=== PATIENT | male | born 1965 | race Caucasian/White ===

== ENCOUNTER 2017-05-13 09:26 | Outpatient (RCR) | payer BC ==
[2017-03-06 09:21] VITALS: BP 153/81
[2017-03-06 09:54] LABS: PLATELET COUNT, AUTOMATED 133 K/uL (150-450)
[2017-03-13 09:08] VITALS: BP 125/82
--- NOTE | 2017-03-13 09:55 | ONC Progress Note - NP.Halsey ---
Patient History Date of Service Mar 13, 2017 Reason For Visit/HPI Patient is seen in the clinic today for follow-up of his stage IV low-grade follicular lymphoma which is currently in remission. 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 Labs were drawn prior office visit and reviewed today. Overall he is feeling well and denies any signs or symptoms of sinus infection or upper respiratory infection. Patient has been healthy and has not been on antibiotics for over a year. He completed IgG infusions last April. He has been followed every 3 months for monitoring. Patient is taking Zyrtec daily and probiotics. He is careful to wash his hands and avoid areas of crowded people. 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 As long as he avoids tuna he has no episodes of gout attacks Problem List (1) NHL (non-Hodgkin's lymphoma) (2) Hypogammaglobulinemia, acquired (3) Stage 4 low grade lymphoma Oncology History Nguyễn returns. He finished all of his maintenance Rituxan but continues to have leukopenia and hypogammaglobulinemia. He started IVIG in December 2015 and continued it through May 2016. His levels improved from the 200s up to the 700s. His highest level was above 1000. With this, his issues with infection improved considerably. We had issues with insurance approval and thus we put it on hold. His IgG is dropping again to 391 and more recent is 345. His lymphopenia is mild, we continue to use acyclovir as prophylaxis. 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 Alcohol History He denies use Smoking History: No Smoking Status: Never Smoker Medications and Allergies Active Scripts Acyclovir (ACYCLOVIR) 400 Mg Tablet, 400 MG PO BID, #60 TAB 5 Refills Prov:TAMIKA LARSEN INVESTOR RELATIONS ASSOCIATE-BC, ONC 01/31/17 Reported Medications Cetirizine Hcl (ZYRTEC) 10 Mg Capsule, 10 MG PO QDAY, CAPSULE 03/13/17 Lactobacillus Combo No.11 (PROBIOTIC) 1 Each Cap.sprink 03/13/17 Multivitamin (MULTIVITAMINS) 1 Each Capsule, 1 EACH PO, CAPSULE 03/13/17 Indomethacin (INDOMETHACIN) 50 Mg Capsule, 50 MG PO, CAPSULE 12/17/13 Allergies: Coded Allergies: No Known Drug Allergies (Unverified , 12/17/13) Review of System/Physical Exam Review of Systems All Systems Reviewed/Normal: Yes, Except as Noted Respiratory: Positive for Cough (occasional dry cough patient does report that he the use a wood burning stove) Physical Exam Vital Signs Temperature: 96.0 Pulse: 80 BP Systolic: 125 BP Diastolic: 82 Respiratory Rate: 16 O2 SAT: 94 O2 Delivery: Room Air Height (inches) 0.00 Weight lb: 220 Weight oz: 9.0 Weight Kg (Giovanni): 99.487754 Pain: 0 ECOG Score: 0 (Patient has been active outdoors skiing) General: Stable, Well Developed, Well Nourished, Not In Acute Distress HEENT: No Trauma, No Conjunctivitis Neck: Supple, No Thyromegaly Lungs: Clear to Auscultation Heart: Regular Rate, Regular Rhythm, No Gallops Abdomen: Soft and Nontender, No Hepatosplenomegaly, No Masses Extremities: No Cyanosis, No Clubbing, No Edema Lymphadenopathy: No Cervical, No Subclavicular, No Axillary, No Peripheral Psychiatric: Mood appears normal, Affect appears normal Skin: No Skin Rashes, No Bruising, No Purpura Diagnostic Studies Diagnostic Studies Laboratory Laboratory Tests 03/06/17 09:15 Laboratory Tests 03/06/17 09:15: White Blood Count 5.1, Red Blood Count 5.62, Hemoglobin 16.3, Hematocrit 46.2, Mean Corpuscular Volume 82.3, Mean Corpuscular Hemoglobin 29.0, Mean Corpuscular Hemoglobin Concent 35.3, Red Cell Distribution Width 14.2, Platelet Count 133, Mean Platelet Volume 8.4, Neutrophils (%) (Auto) 74.8, Lymphocytes (% ) (Auto) 12.9, Monocytes (%) (Auto) 8.7, Eosinophils (%) (Auto) 0.8, Basophils ( %) (Auto) 2.8, Nucleated RBC Relative Count (auto) 0.1, Neutrophils # (Auto) 3.8 , Lymphocytes # (Auto) 0.7, Monocytes # (Auto) 0.4, Eosinophils # (Auto) 0.0, Basophils # (Auto) 0.1, Nucleated RBC Absolute Count (auto) 0.00, Sodium Level 142, Potassium Level 4.0, Chloride Level 107, Carbon Dioxide Level 23, Blood Urea Nitrogen 15, Creatinine 1.10, Glomerular Filtration Rate Calc > 60.0, Random Glucose 109, Calcium Level 9.0, Total Bilirubin 0.6, Aspartate Amino Transf (AST/SGOT) 28, Alanine Aminotransferase (ALT/SGPT) 49, Alkaline Phosphatase 62, Total Protein 6.6, Albumin 4.3, Immunoglobulin G 345, Immunoglobulin A 39, Immunoglobulin M <5 Assessment and Plan Assessment & Plan Mr. Boyd is a pleasant 52-year-old gentleman with the followin. Stage IV follicular lymphoma, low-grade, in remission. 2. Acquired hypogammaglobulinemia. His baseline IgG after chemotherapy was less than 300. It is dropping again, currently at 345. If he has issues with recurrent infections, we will appeal to his insurance company to get IVIG's restarted again. He will continue on acyclovir for prevention. 3. 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 Plan: 1. Patient will follow in 3 months with CBC, CMP and IgG levels. 2. Patient will establish care at the medical office building, Dr. Cardozo is retiring so he will transfer his care. Several names were given to him today. I personally spent a total of 20 minutes. Of that 15 minutes was counseling/ coordination of patient's care. See my note above for details. TAMIKA LARSEN INVESTOR RELATIONS ASSOCIATE-BC, ONC Mar 13, 2017 09:55
[2017-04-22 08:58] VITALS: BP 151/89
--- NOTE | 2017-04-22 09:20 | ONC Progress Note - NP.Halsey ---
Patient History Reason For Visit/HPI Patient is seen in the clinic today for upper respiratory infection symptoms to include cough, shortness of breath with exertion, sinus drainage which is green in color, no fever or chills, no bone aches. Patient reports that symptoms started approximately 14 days ago. He has been using [id number] medications such as Mucinex and Tylenol cold and cough. He felt that symptoms would improve, unfortunately over the weekend they seem to get worse. Currently his ribs hurt from coughing. He feels that he is waking in the middle of the night coughing. His had flulike symptoms to include diarrhea and nausea several weeks ago, he has not been around anyone else that has been ill to his knowledge. Patient is seen in the clinic for his stage IV low-grade follicular lymphoma which is currently in remission. 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 He previously had frequent upper respiratory infections however has been relatively well for over a year Problem List (1) Infection of the larynx, trachea, bronchi or lungs Oncology History Nguyễn returns. He finished all of his maintenance Rituxan but continues to have leukopenia and hypogammaglobulinemia. He started IVIG in December 2015 and continued it through May 2016. His levels improved from the 200s up to the 700s. His highest level was above 1000. With this, his issues with infection improved considerably. We had issues with insurance approval and thus we put it on hold. His IgG is dropping again to 391 and more recent is 345. His lymphopenia is mild, we continue to use acyclovir as prophylaxis. 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 Alcohol History He denies use Smoking History: No Smoking Status: Never Smoker Medications and Allergies Active Scripts Benzonatate (BENZONATATE) 200 Mg Capsule, 200 MG PO TID, #15 CAP Prov:TAMIKA LARSEN-ESTUARDO, ONC 04/22/17 Azithromycin (Z-PACK) 250 Mg Tablet, 250 MG PO QDAY for URI, #6 DOSE-PACK Prov:TAMIKA LARSEN, ONC 04/22/17 Acyclovir (ACYCLOVIR) 400 Mg Tablet, 400 MG PO BID, #60 TAB 5 Refills Prov:TAMIKA LARSENBC, ONC 01/31/17 Reported Medications Cetirizine Hcl (ZYRTEC) 10 Mg Capsule, 10 MG PO QDAY, CAPSULE 03/13/17 Lactobacillus Combo No.11 (PROBIOTIC) 1 Each Cap.sprink 03/13/17 Multivitamin (MULTIVITAMINS) 1 Each Capsule, 1 EACH PO, CAPSULE 03/13/17 Indomethacin (INDOMETHACIN) 50 Mg Capsule, 50 MG PO, CAPSULE 12/17/13 Allergies: Coded Allergies: No Known Drug Allergies (Unverified , 12/17/13) Review of System/Physical Exam Review of Systems All Systems Reviewed/Normal: Yes, Except as Noted Constitutional: Positive for Recent Infection Respiratory: Positive for Cough, Positive for Expectoration, Positive for Shortness of Breath, Positive for Wheezing HEENT: Nasal Discharge, Sore Throat Hematologic: Positive for Fatigue Physical Exam Vital Signs Temperature: 97.2 Pulse: 71 BP Systolic: 151 BP Diastolic: 89 Respiratory Rate: 16 O2 SAT: 93 O2 Delivery: Room Air Height (inches) 0.00 Weight lb: 220 Weight oz: 9.0 Weight Kg (Giovanni): 99.491664 Pain: 0 ECOG Score: 1 General: Stable, Well Developed, Well Nourished, Not In Acute Distress, Other ( patient appears to not be feeling well, he is coughing frequently which sounds loose) HEENT: No Trauma, No Conjunctivitis, No Icterus, No Mucositis, No Oral Thrush Neck: Supple Lungs: Not Clear to Auscultation (bilateral lower lobes are distant and a cough is experienced with each deep breath. Upper lobes are clear bilaterally) Heart: Regular Rate, Regular Rhythm, No Gallops Abdomen: Soft and Nontender, Other Psychiatric: Mood appears normal, Affect appears normal Skin: No Skin Rashes, No Bruising, No Purpura Assessment and Plan Assessment & Plan Patient is seen in the clinic today for upper respiratory infection. Patient has not been treated with antibiotics in over a year. I will start him on a Z- Chaitanya, and Tessalon Perles. If symptoms do not improve patient will return to the clinic. Patient verbalized understanding. He will see be seen in follow-up as previously scheduled. Patient previously used Dr. Cardozo at his primary care provider and is without a provider at this time. This information is copied from previous note. Mr. Boyd is a pleasant 52-year-old gentleman with the followin. Stage IV follicular lymphoma, low-grade, in remission. 2. Acquired hypogammaglobulinemia. His baseline IgG after chemotherapy was less than 300. It is dropping again, currently at 345. If he has issues with recurrent infections, we will appeal to his insurance company to get IVIG's restarted again. He will continue on acyclovir for prevention. 3. 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 Plan: 1. Patient will follow in 3 months with CBC, CMP and IgG levels. 2. Patient will establish care at the medical office building, Dr. Cardozo is retiring so he will transfer his care. Several names were given to him today. I personally spent a total of 20 minutes. Of that 15 minutes was counseling/ coordination of patient's care. See my note above for details. TAMIKA LARSEN AIR GUN OPERATOR-BC, ONC Apr 22, 2017 09:20
[2017-05-08 08:30] VITALS: BP 141/92
[2017-05-08 08:41] LABS: PLATELET COUNT, AUTOMATED 133 K/uL (150-450)
[~2017-05-13] VITALS: Ht 180.3 cm; Wt 108.0 kg
[~2017-05-13 09:26] MED LIST: ACET-2043 PO; ACET-3017 PO; ACYC-50 PO; ALL300 PO; AMOX-556 PO; AZIT-17 PO; BENZ100C4 PO; BENZ200C15 PO; CETI10CA8 PO; CODE118S5 PO; CYCL10TA29 PO; DEX4; DEX4 PO; HYDR-385 PO; IBUP800T37 PO; INDO-1 PO; INDO50CA92 PO; INFLUENZA VIRUS VAC 0.5 ML SYR IM ONLY ONE; LACT1CAP12; LEVO-85 PO; LEVO750T44 PO; METH4TAB66 PO; MULT1CAP59 PO; ONDA8TAB91 PO; P EP PO
[2017-05-13 09:31] VITALS: BP 152/90
--- NOTE | 2017-05-14 18:35 | ONCOLOGY FOLLOW UP NOTE ---
EVENT DATE: May 13, 2017 CHIEF COMPLAINT/REASON FOR VISIT Mr. Boyd is a very pleasant 51-year-old gentleman with stage IV low grade follicular lymphoma currently in remission, that also has acquired hypogammaglobulinemia due to chemotherapy and his lymphoma. HISTORY OF PRESENT ILLNESS Nguyễn stiles. He finished all of his two years of maintenance Rituxan and does continue to have leukopenia and hypogammaglobulinemia as expected. We started IVIG from December 2015 through May 2016. His counts recovered and he had less issues with infection. We then had issues with insurance approval and put this on hold. His IgG does remain low, most recently less than 300 again. He did have an infection earlier in 2017, but recovered quickly with a Z-Chaitanya antibiotic. We continue the daily acyclovir prophylaxis. Overall he feels quite well. He continues to ski two days a week. No other issues today. PAST MEDICAL/SURGICAL HISTORY Otherwise unremarkable. FAMILY HISTORY Father with bladder and urethral cancer. Mother with likely thyroid cancer. SOCIAL HISTORY Patient presents with his again today. No tobacco use. Rare alcohol use. MEDICATIONS 1. Indomethacin. 2. Omeprazole. 3. Acyclovir. REVIEW OF SYSTEMS CONSTITUTIONAL: No fevers, chills, current signs of infection. HEENT: No headache or vision changes. CARDIOVASCULAR: No chest pain, dyspnea on exertion or edema. RESPIRATORY: Positive chronic cough, improved after the recent antibiotic. No other respiratory concerns. GASTROINTESTINAL: No nausea, vomiting. GENITOURINARY: No dysuria or hematuria. MUSCULOSKELETAL: No weakness or joint pain. PSYCHIATRIC: No anxiety or depression. The remainder of the 14-point review of systems is otherwise negative. PHYSICAL EXAMINATION VITAL SIGNS: Blood pressure 152/90, pulse 74, respiratory rate 16, temperature 97 Fahrenheit, oxygen saturation 92% on room air. Weight 108 kg. Pain 0/10, fatigue 0/10. GENERAL: In stable condition, resting comfortably in the chair. HEENT: Normocephalic, atraumatic. CARDIOVASCULAR: Deferred. ABDOMEN: Soft, nontender, nondistended. No masses or organomegaly. LYMPHATIC: No appreciable cervical, supraclavicular or axillary adenopathy today. The remainder of the physical exam is otherwise unremarkable. IMPRESSION AND PLAN Mr. Boyd is a pleasant 51-year-old gentleman with the followin. Stage IV follicular lymphoma low grade, in remission. 2. Acquired hypogammaglobulinemia with a baseline IgG after chemotherapy less than 300. Currently we have had difficulty getting IVIG approved by insurance for unclear reasons. If he has more issues with infection we will push for this again. He can continue the acyclovir or use it as needed. 3. Acquired leukopenia due to medications and chemotherapy. I answered all of his questions. He should see our clinic every three months. Billing: Return visit level 3. MTDD
== END 2017-06-03 ==
LOC: ONC 09:26
PROVIDERS: ATTEND Nurse Practitioner Family
DX: Z85.72 Personal history of non-Hodgkin lymphomas (principal); D80.1 Nonfamilial hypogammaglobulinemia; Z23 Encounter for immunization; Z79.899 Other long term (current) drug therapy; R05 Cough; J06.9 Acute upper respiratory infection, unspecified
CPT/HCPCS: 36415; 82040; 82247; 82310; 82374; 82435; 82565; 82784; 82947; 84075; 84132; 84155; 84295; 84450; 84460; 84520; 85025; 90471; 90674; 99212

== ENCOUNTER 2017-11-11 08:00 | Outpatient (RCR) | payer BC ==
[2017-08-26 08:25] VITALS: BP 127/88
[2017-08-26 08:30] LABS: PLATELET COUNT, AUTOMATED 149 K/uL (150-450)
[2017-09-04 08:40] VITALS: BP 141/81
--- NOTE | 2017-09-04 17:14 | ONCOLOGY FOLLOW UP NOTE ---
EVENT DATE: September 04, 2017 CHIEF COMPLAINT/REASON FOR VISIT Mr. Boyd is a very pleasant 52-year-old with a history of stage IV low grade follicular lymphoma currently in remission, but also has significant acquired hypogammaglobulinemia due to chemotherapy and his lymphoma. HISTORY OF PRESENT ILLNESS Nguyễn stiles. He finished all of his two years of maintenance Rituxan and continues to do well with regard to the lymphoma. Unfortunately, he has leukopenia with an absolute lymphocytic count of 0.5, and profound hypogammaglobulinemia with a level less than 300 again today. He continues to have major issues with infection and felt much better when we did IVIG from December 2015 through May 2016. He has been on two Z-Paks in the past two weeks and feels perhaps 10% better. We will continue the acyclovir prophylaxis given the lymphopenia, but I think it is critical that we get IVIG. His insurance has had denials for it for unclear reasons and this has been quite frustrating, as he has profound hypogammaglobulinemia which is significantly impacting his quality of life. Recently he has been sick more often than not, but fortunately has not yet been hospitalized. PAST MEDICAL/SURGICAL HISTORY Otherwise unremarkable. FAMILY HISTORY Father with bladder and urethral cancer. Mother with likely thyroid cancer. SOCIAL HISTORY Patient presents with his again today. No tobacco use. Rare alcohol use. MEDICATIONS 1. Indomethacin. 2. Omeprazole. 3. Acyclovir. REVIEW OF SYSTEMS CONSTITUTIONAL: Positive fevers, chills. He has been unwell for about two weeks again and has had multiple infections this spring. He has been on antibiotics for approximately 10 days. HEENT: No headache or vision changes. CARDIOVASCULAR: No chest pain, dyspnea on exertion or edema. RESPIRATORY: Positive cough. He has a chronic cough now and I believe this is related to his hypogammaglobulinemia. No apnea. GASTROINTESTINAL: No nausea, vomiting. GENITOURINARY: No dysuria or hematuria. MUSCULOSKELETAL: No weakness or joint pain. Positive fatigue due to infection. PSYCHIATRIC: No anxiety or depression. SKIN: No concerning rashes or lesions. HEMATOLOGIC: No concerning lumps or bumps, easy bruising or bleeding. ENDOCRINE: No heat or cold intolerance. The remainder of the 14-point review of systems is otherwise negative. PHYSICAL EXAMINATION VITAL SIGNS: Blood pressure 141/81, pulse 81, respiratory rate 16, temperature 97.2 Fahrenheit, oxygen saturation 90% on room air. Weight 104.1 kg. Pain 5/10 , fatigue 5/10. The pain is in his back and related to coughing fits leading to "throwing out his back." GENERAL: In stable condition, sick appearing, but nontoxic. HEENT: Normocephalic, atraumatic. Wearing a mask due to upper respiratory symptoms. ABDOMEN: Soft, nontender. Positive distention and moderate obesity. No masses or organomegaly. LYMPHATIC: No appreciable cervical, supraclavicular or axillary adenopathy today. SKIN: No concerning rashes. The remainder of the physical exam is otherwise unremarkable. IMPRESSION AND PLAN Mr. Boyd is a pleasant 52-year-old gentleman with the followin. Stage IV low grade follicular lymphoma currently in remission. 2. Severe acquired hypogammaglobulinemia with a baseline IgG after chemotherapy less than 300. Unfortunately we have had difficulty getting IVIG approved again by his insurance for unclear reasons. He is having more issues with infections and has been on two antibiotics this month with minimal improvement in his symptoms. We will continue the acyclovir, but we need to push to get IVIG which was helpful for him in the past when he had a similar scenario. 3. Acquired leukopenia due to medications and chemotherapy. 4. Back pain due to a coughing fit. He is having muscle spasms. We will send in a prescription for Flexeril which has helped in in the past for back pain and spasms. I answered all of his questions today. He will see us in clinic every two to three months. Would like to get monthly IVIG as soon as possible. Billing: Return visit level 4. Total time 30 minutes, counseling time 20. MTDD
[2017-09-12 08:39] VITALS: BP 141/78
[2017-09-12] MEDS: diphenhydrAMINE 50 MG/ML VIAL IVP PRN (08:42)
[2017-09-12] MEDS: ACETAMINOPHEN 325 MG TAB PO PRN (08:42)
[2017-09-12 08:44] LABS: PLATELET COUNT, AUTOMATED 173 K/uL (150-450)
[2017-09-12] MEDS: NS(*) 0.9% 100 ML BAG 100 ML IVPB PRN (09:22)
[2017-09-12] MEDS: LIDOCAINE/SOD BICARB 8.4% SYR ID PRN (09:22)
[2017-09-12 09:34] VITALS: BP 117/76
[2017-09-12 09:49] VITALS: BP 130/76
[2017-09-12 10:22] VITALS: BP 132/75
[2017-09-12 15:14] VITALS: BP 146/90
[2017-10-14 08:35] LABS: PLATELET COUNT, AUTOMATED 126 K/uL (150-450)
[2017-10-14] MEDS: diphenhydrAMINE 50 MG/ML VIAL IVP PRN (08:40)
[2017-10-14] MEDS: NS(*) 0.9% 100 ML BAG 100 ML IVPB PRN (08:40)
[2017-10-14 08:44] VITALS: BP 134/84
[2017-10-14] MEDS: LIDOCAINE/SOD BICARB 8.4% SYR ID PRN (08:44)
[2017-10-14 11:36] VITALS: BP 143/82
[2017-10-28 08:05] VITALS: BP 130/87
--- NOTE | 2017-10-29 20:08 | ONCOLOGY FOLLOW UP NOTE ---
EVENT DATE: October 28, 2017 CHIEF COMPLAINT/REASON FOR VISIT Mr. Boyd is a pleasant, 52-year-old gentleman with a history of stage IV low- grade follicular lymphoma, currently in remission, but also has significant acquired hypogammuglobulinemia due to chemotherapy and his lymphoma history that has worsened. HISTORY OF PRESENT ILLNESS Nguyễn returns with his today. He finished all of his two years of maintenance Rituxan and continues to do well with regard to lymphoma. However, he has leukopenia and profound hypogammaglobulinemia with a level less than 300 in the spring. He required IVIG from December 2015 through May 2016. This helped for quite some time, and we were able to stop it. However, in the spring, more frequent infections became then norm. He was sick frequently, and it was affecting his quality of life. His hypogammaglobulinemia worsened during that time. It is not unusual to see that occur in lymphoma survivors, particularly those with long-term survival. PAST MEDICAL/SURGICAL HISTORY Otherwise unremarkable. FAMILY HISTORY Father with bladder and urethral cancer. Mother with likely thyroid cancer. SOCIAL HISTORY Patient presents with his again today. No tobacco use. Rare alcohol use. MEDICATIONS 1. Indomethacin. 2. Omeprazole. 3. Acyclovir. REVIEW OF SYSTEMS CONSTITUTIONAL: No fevers, chills. He has been well since we started IVIG about two months ago. HEENT: No headache or vision changes. CARDIOVASCULAR: No chest pain, dyspnea on exertion, or edema. RESPIRATORY: Shortness of breath, wheeze. Chronic cough still present, but improved. GASTROINTESTINAL: No nausea or vomiting. GENITOURINARY: No dysuria or hematuria. MUSCULOSKELETAL: No weakness or joint pain. PSYCHIATRIC: No anxiety or depression. SKIN: No concerning rashes or lesions. HEMATOLOGIC/LYMPHATIC: No concerning lumps or bumps, easy bruising or bleeding. ENDOCRINE: No heat or cold intolerance. The remainder of the 14-point review of systems otherwise negative. PHYSICAL EXAMINATION VITAL SIGNS: Blood pressure 130/87, pulse 72, respiratory rate 16, temperature 97 Fahrenheit, oxygen saturation 91% on room air. Weight 102.7 kg. Pain zero/ 10. Fatigue zero/10. GENERAL: Stable condition, resting comfortably in the chair, nontoxic. HEENT: Normocephalic, atraumatic. CARDIOVASCULAR: Regular rate and rhythm. LUNGS: Clear. ABDOMEN: Soft, nontender. LYMPHATIC: No appreciable cervical, supraclavicular, or axillary adenopathy. SKIN: No concerning rashes. Remainder of physical exam otherwise unremarkable. IMPRESSION AND PLAN Mr. Boyd is a pleasant, 52-year-old gentleman with the followin. Stage IV low-grade follicular lymphoma, currently in remission. 2. Severe acquired hypogammaglobulinemia with a baseline IgG after chemotherapy less than 300. I am worried that he will likely need IVIG indefinitely, but we plan to treat him two months at a time and then reassess. If his sage IgG level improves, we could consider stopping this if it rises above 700. 3. Acquired leukopenia due to his prior chemotherapy. Remainder of our exam and discussion unremarkable. He is very pleased with how much better he feels on the IVIG and understands this may be a long-term therapy , although we will try to get him off it. BILLING Return visit level 4. Total time 30 minutes, counseling time 20. MTDD
[~2017-11-11] VITALS: Ht 177.8 cm; Wt 104.1 kg
[~2017-11-11 08:00] MED LIST changes: +DEXTROSE 5%(*) 100 ML BAG 100 ML IVPB PRN; -INDO-1 PO; +INDO-21 PO; +INDO-23 PO; -INDO50CA92 PO; -INFLUENZA VIRUS VAC 0.5 ML SYR IM ONLY ONE; +[UNRECOGNIZED DRUG - MIXTURE] IV ONE
[2017-11-11 08:13] VITALS: BP 137/81
[2017-11-11] MEDS: NS(*) 0.9% 100 ML BAG 100 ML IVPB PRN (08:30)
[2017-11-11] MEDS: diphenhydrAMINE 50 MG/ML VIAL IVP PRN (08:30)
[2017-11-11] MEDS: ACETAMINOPHEN 325 MG TAB PO PRN (08:30)
[2017-11-11] MEDS ORDERED: [UNRECOGNIZED DRUG - MIXTURE] IV ONE (08:40)
[2017-11-11 08:46] LABS: PLATELET COUNT, AUTOMATED 123 K/uL (150-450)
[2017-11-11] MEDS: LIDOCAINE/SOD BICARB 8.4% SYR ID PRN (09:02)
[2017-11-11 12:02] VITALS: BP 127/78
== END 2017-11-21 ==
LOC: SPU 08:00
PROVIDERS: ATTEND Internal Medicine
DX: Z85.72 Personal history of non-Hodgkin lymphomas (principal); D80.1 Nonfamilial hypogammaglobulinemia; D70.2 Other drug-induced agranulocytosis; M54.9 Dorsalgia, unspecified; R05 Cough
CPT/HCPCS: 36415; 82784; 85025; 96365; 96366; 96375; 99212; J1200; J1459; J7050; 82040; 82247; 82310; 82374; 82435; 82565; 82947; 84075; 84132; 84155; 84295; 84450; 84460; 84520

== ENCOUNTER 2017-12-30 08:00 | Outpatient (RCR) | payer BC ==
[2017-12-16 08:30] VITALS: BP 126/84
[2017-12-16 08:54] LABS: PLATELET COUNT, AUTOMATED 118 K/uL (150-450)
[2017-12-16 13:32] VITALS: BP 147/76
[~2017-12-30] VITALS: Ht 177.8 cm; Wt 107.7 kg
[~2017-12-30 08:00] MED LIST changes: +ACETAMINOPHEN 325 MG TAB PO PRN; +LIDOCAINE/SOD BICARB 8.4% SYR ID PRN; +NS(*) 0.9% 100 ML BAG 100 ML IVPB PRN; -[UNRECOGNIZED DRUG - MIXTURE] IV ONE; +[UNRECOGNIZED DRUG - OTHER] IV ONE; +diphenhydrAMINE 50 MG/ML VIAL IVP PRN
[2017-12-30 08:03] VITALS: BP 149/89
--- NOTE | 2017-12-31 17:05 | ONCOLOGY FOLLOW UP NOTE ---
EVENT DATE: December 30, 2017 CHIEF COMPLAINT/REASON FOR VISIT Mr. Boyd is a pleasant, 52-year-old gentleman with a history of stage IV, low- grade follicular lymphoma, currently in remission, but also with significant acquired hypogammaglobulinemia due to chemotherapy and lymphoma. HISTORY OF PRESENT ILLNESS Nguyễn returns today with his . He finished his two years of maintenance Rituxan and continues to do well with regard to the lymphoma. However, he does have significant leukopenia and profound hypogammaglobulinemia with a level in the 200s (normal greater than 700) in the spring. He has been on IVIG this summer, and we will continue it into the fall and winter. This has been very helpful for him. He is getting much less infections with this intervention, thankfully. No other new issues today. 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 PAST MEDICAL/SURGICAL HISTORY Otherwise unremarkable. FAMILY HISTORY Father with bladder and urethral cancer. Mother with likely thyroid cancer. SOCIAL HISTORY Patient presents with his again today. No tobacco use. Rare alcohol use. REVIEW OF SYSTEMS CONSTITUTIONAL: No fevers, chills, excess fatigue. HEENT: No headache or vision changes. CARDIOVASCULAR: No chest pain, dyspnea on exertion, or edema. RESPIRATORY: Shortness of breath, wheeze. Chronic cough still present, but improved. GASTROINTESTINAL: No nausea or vomiting. GENITOURINARY: No dysuria or hematuria. MUSCULOSKELETAL: No weakness or joint pain. PSYCHIATRIC: No anxiety or depression. SKIN: No concerning rashes or lesions. HEMATOLOGIC/LYMPHATIC: No concerning lumps or bumps, easy bruising or bleeding. ENDOCRINE: No heat or cold intolerance. The remainder of the 14-point review of systems otherwise negative. PHYSICAL EXAMINATION VITAL SIGNS: Blood pressure 149/89, pulse 73, respiratory rate 16, temperature 97.3 Fahrenheit, oxygen saturation 92% on room air. Weight 107.7 kg. Pain zero/10. Fatigue 4/10. GENERAL: Stable condition, resting comfortably in the chair. HEENT: Normocephalic, atraumatic. LYMPHATIC: No appreciable cervical, supraclavicular, or axillary adenopathy. ABDOMEN: Soft, nontender. I do believe I feel his spleen edge, but it is nontender and has not enlarged. I do believe it is either slightly enlarged or at the upper limit of normal based on exam. No other concerning findings. PSYCHIATRIC: Normal mood and affect. SKIN: No concerning lesions or rashes. NEUROLOGIC: No deficits. IMPRESSION AND PLAN Mr. Boyd is a pleasant, 52-year-old gentleman with the followin. Metastatic low-grade non-Hodgkin lymphoma, currently in remission. He completed maintenance Rituxan. 2. Severe acquired hypogammaglobulinemia with a baseline IgG in the 200s after chemotherapy. With replacement, we are getting him above 400 and near normal in the 600s and 700s. This is ideal for replacement, and we will continue monthly. He has noted symptom improvement and is not sick nearly as often. 3. 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 Answered all his questions. No concerning red flag findings. I answered all their questions. BILLING Return visit level 4. Total time 30 minutes, counseling time 20. MTDD
== END 2018-01-01 09:35 | disposition home or self-care (01) ==
LOC: ONC 08:00
PROVIDERS: ATTEND Internal Medicine
DX: Z85.72 Personal history of non-Hodgkin lymphomas (principal); D80.1 Nonfamilial hypogammaglobulinemia; R06.02 Shortness of breath; R05 Cough
CPT/HCPCS: 82784; 85025; 96365; 96366; 96375; 99212; J1200; J1459; 82040; 82247; 82310; 82374; 82435; 82565; 82947; 84075; 84132; 84155; 84295; 84450; 84460; 84520

== ENCOUNTER 2018-04-03 08:00 | Outpatient (RCR) | payer BC ==
[2018-01-13 08:40] VITALS: BP 161/81
[2018-01-13] MEDS: LIDOCAINE/SOD BICARB 8.4% SYR ID PRN (08:59)
[2018-01-13] MEDS: ACETAMINOPHEN 325 MG TAB PO PRN (09:13)
[2018-01-13] MEDS: diphenhydrAMINE 25 MG CAP PO PRN (09:14)
[2018-01-13 12:00] VITALS: BP 142/88
[2018-02-10 11:42] LABS: PLATELET COUNT, AUTOMATED 153 K/uL (150-450)
[2018-02-10] MEDS: diphenhydrAMINE 25 MG CAP PO PRN (11:46)
[2018-02-10] MEDS: ACETAMINOPHEN 325 MG TAB PO PRN (11:46)
[2018-02-10] MEDS: NS(*) 0.9% 100 ML BAG 100 ML IVPB PRN (11:47)
[2018-02-10] MEDS: LIDOCAINE/SOD BICARB 8.4% SYR ID PRN (11:47)
[2018-02-10 11:50] VITALS: BP 153/79
[2018-02-10 15:03] VITALS: BP 152/88
[2018-03-05 08:36] VITALS: BP 157/87
--- NOTE | 2018-03-05 10:06 | ONCOLOGY FOLLOW UP NOTE ---
EVENT DATE: March 05, 2018 CHIEF COMPLAINT/REASON FOR VISIT Followup for stage 4 low-grade follicular lymphoma. HISTORY OF PRESENT ILLNESS Patient is a 53-year-old male who is seen today in three month followup for stage 4 low-grade follicular lymphoma. Overall, he is doing well. He has noted no adenopathy and no night sweats. He has had a difficult time as his father in January and they are in the process of moving his mother from her home of 55 years into the [facility]. 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 He denies any other new complaints. He continues to receive IVIG, next due on March 10, 2018. ONCOLOGY HISTORY Presented with adenopathy in 2012. Right inguinal node increased in 2013. Biopsy in April 2013 showed a low-grade follicular lymphoma. Bone marrow biopsy was positive in May 2013. He completed six cycles of bendamustine and Rituxan from May 2013 through September 2013 and then received maintenance Rituxan from November 2013 through June 2015. He was noted to be immunosuppressed and has been on IVIG monthly since October 2017. PAST MEDICAL HISTORY Stage 4 low-grade follicular lymphoma, 2013. PAST SURGICAL HISTORY Unremarkable. FAMILY HISTORY Father with bladder and urethral cancer. Mother with likely thyroid cancer. SOCIAL HISTORY Patient is . They have grown children. 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 He does not smoke cigarettes. REVIEW OF SYSTEMS A 12-point review of systems is performed and is negative except as stated above. PHYSICAL EXAMINATION VITAL SIGNS: Weight 111.4 kg. BP 157/87, P 73, R 18, temperature 97.4, O2 sat 91%. GENERAL: Well-developed, well-nourished male in no acute distress. HEAD: Normocephalic, atraumatic. EYES: Sclerae anicteric. MOUTH: Moist mucous membranes. NECK: Supple. No palpable adenopathy. LUNGS: Clear bilaterally. CARDIOVASCULAR: Heart rate regular, 73 per minute without murmur, S3 or S4. ABDOMEN: Soft, nontender. No palpable spleen, although exam is limited by body habitus. EXTREMITIES: No edema. NEUROLOGIC: Nonfocal. LABS CBC on February 10, 2018 showed a WBC of 3.7, ANC 2.6, hemoglobin 16.4, hematocrit 48.1, platelets 153,000. CMP was within normal limits except slightly elevated AST of 57 and elevated ALT of 79. IgG 1050. IMPRESSION AND PLAN The patient is a 53-year-old male with a history of stage 4 low-grade follicular lymphoma. Completed chemotherapy with bendamustine and Rituxan in September 2013. Completed maintenance Rituxan in June 2015. Receives IVIG monthly. 1. Metastatic low-grade non-Hodgkin lymphoma. Continues to be in remission. He has had no symptoms of recurrent disease. 2. Hypogammaglobulinemia. IgG was in the 200s after chemotherapy. These levels have slowly increased, today 1050. He will receive his next dose of IVIG on March 10, 2018. 3. Healthcare maintenance. We discussed the importance of exercise. As above, this has been a difficult time with his father's recent but he and his are committed to working on increasing exercise. 4. Followup with Dr. Cuevas on April 14, 2018. CBC, CMP and immunoglobulins will be drawn at that time. MTDD
[2018-03-10 08:18] LABS: PLATELET COUNT, AUTOMATED 147 K/uL (150-450)
[2018-03-10] MEDS: ACETAMINOPHEN 325 MG TAB PO PRN (08:22)
[2018-03-10] MEDS: diphenhydrAMINE 25 MG CAP PO PRN (08:22)
[2018-03-10] MEDS: NS(*) 0.9% 100 ML BAG 100 ML IVPB PRN ×2 (08:23→08:30)
[2018-03-10 08:26] VITALS: BP 145/80
[2018-03-10] MEDS: LIDOCAINE/SOD BICARB 8.4% SYR ID PRN (11:26)
[~2018-04-03 08:00] MED LIST changes: -ACETAMINOPHEN 325 MG TAB PO PRN; +IMMU GLOB(IGG) 10GR/100ML VIAL 100 ML IV ONE; +IMMU GLOB(IGG) 20GR/200ML VIAL 20 GR, IMMU GLOB(IGG) 10GR/100ML VIAL 10 GR in EMPTY EVA... IVPB ONE; +IMMU GLOB(IGG) 20GR/200ML VIAL 200 ML IV ONE; +INFLUENZA VIRUS VAC 0.5ML SYR IM ONLY ONE; -LIDOCAINE/SOD BICARB 8.4% SYR ID PRN; -NS(*) 0.9% 100 ML BAG 100 ML IVPB PRN; -[UNRECOGNIZED DRUG - OTHER] IV ONE; -diphenhydrAMINE 50 MG/ML VIAL IVP PRN
[2018-04-03 08:16] VITALS: BP 156/88
[2018-04-03 08:49] LABS: PLATELET COUNT, AUTOMATED 147 K/uL (150-450)
== END 2018-04-13 ==
LOC: SPU 08:00
PROVIDERS: ATTEND Internal Medicine
DX: C82.80 Other types of follicular lymphoma, unspecified site (principal); Z23 Encounter for immunization; D80.1 Nonfamilial hypogammaglobulinemia
CPT/HCPCS: 36415; 82784; 85025; 85027; 90471; 90674; 96365; 96366; 99212; J1459; J7050; Q0163; 82040; 82247; 82310; 82374; 82435; 82565; 82947; 84075; 84132; 84155; 84295; 84450; 84460; 84520

== ENCOUNTER 2018-06-16 08:56 | Outpatient (RCR) | payer BC ==
[2018-04-14 08:03] VITALS: BP 136/91
--- NOTE | 2018-04-14 13:58 | [facility] ONCOLOGY NOTE ---
EVENT DATE: April 14, 2018 CHIEF COMPLAINT/REASON FOR VISIT Mr. Boyd is a very pleasant, 53-year-old gentleman here for followup of stage IV low-grade follicular lymphoma, currently in remission, with a history of hypogammaglobulinemia. HISTORY OF PRESENT ILLNESS Nguyễn returns. No adenopathy, night sweats, weight change or symptoms of concern. His father in January and he has gained some weight since then as he has been eating more for comfort. He is trying to change his diet and increase his exercise. He is going skiing today and tomorrow with his son, for example. 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 This may be beneficial to him in terms of infection as he has less contact with food and sick people. He received IVIG through the end of 2017 but would like to try to take a holiday from this now. Hopefully, with time as well as change in his sick contacts, he will not require IVIG. His IgG had dropped down into the 200's before, though, so he may require it again in the future. ONCOLOGY HISTORY Presented with adenopathy in 2012. Right inguinal node increased in 2013. Biopsy in April 2013 showed a low-grade follicular lymphoma. Bone marrow biopsy was positive in May 2013. He completed six cycles of bendamustine and Rituxan from May 2013 through September 2013 and then received maintenance Rituxan from November 2013 through June 2015. He was noted to be immunosuppressed and has been on IVIG monthly since October 2017. PAST MEDICAL HISTORY Stage 4 low-grade follicular lymphoma, 2014. PAST SURGICAL HISTORY Unremarkable. FAMILY HISTORY Father with bladder and urethral cancer. Mother with likely thyroid cancer. SOCIAL HISTORY Patient is . They have grown children. 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 He does not smoke cigarettes. REVIEW OF SYSTEMS CONSTITUTIONAL: No fever, chills or significant change. HEENT: No headache or vision changes. CARDIOVASCULAR: No chest pain, dyspnea on exertion or edema. RESPIRATORY: No shortness of breath, wheezing or cough. GI: No nausea or vomiting. : No dysuria or hematuria. IMMUNOLOGIC: No recent infections. He did have a cold earlier this winter and fought it off without difficulty. PSYCHIATRIC: No anxiety or depression. He was grieving his father and continues to struggle with that as his father in 2018. ENDOCRINE: No heat or cold intolerance. SKIN: No concerning lesions. LYMPHATIC: No concerning lumps or bumps. The remainder of 14-point review of systems is otherwise negative. PHYSICAL EXAMINATION VITAL SIGNS: Blood pressure 136/91, pulse 72, respiratory rate 16, temperature 97.1 Fahrenheit, oxygen saturation 91% on room air, weight 111.5 kilograms. Pain 0/10. Fatigue 0/10. GENERAL: Stable condition, resting comfortably in the chair. HEENT: Normocephalic, atraumatic. CARDIOVASCULAR: Regular rate and rhythm. LUNGS: Clear to auscultation bilaterally. LYMPHATIC: No appreciable cervical, supraclavicular, axillary or inguinal adenopathy. ABDOMEN: Obese, nontender. No organomegaly or masses appreciated. EXTREMITIES: No clubbing, cyanosis or edema. The remainder of physical exam is otherwise unremarkable. IMPRESSION AND PLAN Mr. Boyd is a very pleasant 53-year-old gentleman with the followin. Stage IV low-grade non-Hodgkin's lymphoma, in remission. No signs or symptoms of recurrent disease. 2. Hypogammaglobulinemia. His IgG was in the 200's after chemotherapy and these levels has slowly increased with replacement. We are now going to have a trial to see if he can get off the IVIG but we may need to resume it in the future. 3. Recommend establishing with a primary care physician. Plan to check labs approximately once a month as we are making a change in his IVIG. I answered all of his many questions today. BILLING Return visit level 4. Total time 30 minutes, counseling time 20. MTDD
[2018-05-19 08:03] VITALS: BP 153/98
[2018-05-19 08:17] LABS: PLATELET COUNT, AUTOMATED 132 K/uL (150-450)
[2018-05-29 08:27] VITALS: BP 157/104
--- NOTE | 2018-05-29 15:50 | ONCOLOGY FOLLOW UP NOTE ---
EVENT DATE: May 29, 2018 CHIEF COMPLAINT Followup for stage IV low-grade follicular lymphoma. HISTORY OF PRESENT ILLNESS Patient is a 53-year-old male who was seen today in followup. He had been receiving IVIG due to chronic immunosuppression since October 2017, but this was held after the March 2018 dose. IgG at that time had increased to 932. Overall, he is doing well. He has had no issues with infection. He has had chronic back pain, but is seeing Physical Therapy which is helpful. He relates that his left foot is bruised as "his dog stepped on him." He denies any other new complaints. ONCOLOGY HISTORY Presented with adenopathy in 2012. Right inguinal node increased in 2013. Biopsy in April 2013 showed a low-grade follicular lymphoma. Bone marrow biopsy was positive in May 2013. He completed six cycles of bendamustine and Rituxan from May 2013 through September 2013 and then received maintenance Rituxan from November 2013 through June 2015. He was noted to be immunosuppressed and has been on IVIG monthly since October 2017. He was noted to be immunosuppressed and had been on IVIG monthly from October 2017 through March 2018. PAST MEDICAL HISTORY 1. Stage IV low-grade follicular lymphoma, 2013. 2. Hypertension. PAST SURGICAL HISTORY Unremarkable. FAMILY HISTORY Father with bladder and urethral cancer. Mother with likely thyroid cancer. SOCIAL HISTORY Patient is . They have grown children. 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 He does not smoke cigarettes. MEDICATIONS No routine medications. ALLERGIES No known drug allergies. REVIEW OF SYSTEMS A 12-point review of systems is performed and is negative except as stated above. PHYSICAL EXAMINATION VITAL SIGNS: Weight 111.2 kg. BP 157/104, P 84, R 16, temp 97.7, O2 sat 92%. GENERAL: Patient is a well-developed, well-nourished male in no acute distress. HEAD: Normocephalic, atraumatic. EYES: Sclerae anicteric. MOUTH: Moist mucous membranes. NECK: Supple. No palpable adenopathy. LUNGS: Clear bilaterally. CARDIOVASCULAR: Heart rate regular, 84 per minute, without murmur, S3, or S4. EXTREMITIES: No edema. NEUROLOGIC: Nonfocal. LABORATORY CBC on 05/19/18 showed a WBC of 4.1, ANC of 2.9, hemoglobin 15.3, hematocrit 46.1, platelets 132,000. CMP was within normal limits. IgG decreased to 624. IMPRESSION The patient is a 53-year-old male with a history of stage IV low-grade follicular lymphoma. Completed chemotherapy with bendamustine and Rituxan in September 2013. Completed maintenance Rituxan in June 2015. Received IVIG monthly from October 2017 through March 2018. PLAN 1. Metastatic low-grade follicular lymphoma. No signs or symptoms of disease recurrence. 2. Hypogammaglobulinemia. IgG had decreased to the 200s after chemotherapy, and he had recurrent infections. He received IVIG from October 2017 through March 2018. At that time, IgG was 932. Today, it has decreased to 624. We will continue to monitor trend. I have instructed him to come see us if he feels he is developing any evidence of infection. 3. Thrombocytopenia. Chronic, but stable. No evidence of excessive bruising or bleeding. 4. Hypertension. Blood pressure today is 157/104. He has not yet made an appointment with a new primary care physician, but plans to do so. I have encouraged him to do this in the near future. 5. Lab (CBC, CMP, and immunoglobulin panel) on 06/16/18 and 07/14/18. 6. Follow up with Dr. Cuevas on 07/21/18 for continued care. CORINNE
[~2018-06-16 08:56] MED LIST changes: -DEXTROSE 5%(*) 100 ML BAG 100 ML IVPB PRN; -IMMU GLOB(IGG) 10GR/100ML VIAL 100 ML IV ONE; -IMMU GLOB(IGG) 20GR/200ML VIAL 20 GR, IMMU GLOB(IGG) 10GR/100ML VIAL 10 GR in EMPTY EVA... IVPB ONE; -IMMU GLOB(IGG) 20GR/200ML VIAL 200 ML IV ONE; -INFLUENZA VIRUS VAC 0.5ML SYR IM ONLY ONE
[2018-06-16 09:04] VITALS: BP 166/91
[2018-06-16 09:20] LABS: PLATELET COUNT, AUTOMATED 133 K/uL (150-450)
== END 2018-07-13 ==
LOC: SPU 08:56
PROVIDERS: ATTEND Internal Medicine
DX: C82.80 Other types of follicular lymphoma, unspecified site (principal); D80.1 Nonfamilial hypogammaglobulinemia; M54.9 Dorsalgia, unspecified; D69.6 Thrombocytopenia, unspecified; I10 Essential (primary) hypertension; Z92.21 Personal history of antineoplastic chemotherapy
CPT/HCPCS: 36415; 82040; 82247; 82310; 82374; 82435; 82565; 82784; 82947; 84075; 84132; 84155; 84295; 84450; 84460; 84520; 85025; 99212

== ENCOUNTER 2018-07-21 08:28 | Outpatient (RCR) | payer BC ==
[2018-07-14 08:59] VITALS: BP 142/86
[2018-07-14 09:30] LABS: PLATELET COUNT, AUTOMATED 160 K/uL (150-450)
[2018-07-21 08:40] VITALS: BP 143/83
--- NOTE | 2018-07-21 10:21 | [facility] ONCOLOGY NOTE ---
EVENT DATE: July 21, 2018 CHIEF COMPLAINT/REASON FOR VISIT Mr. Boyd is a pleasant, 53-year-old gentleman here for followup of stage IV low-grade follicular lymphoma, currently in remission, that also has a history of hypogammaglobulinemia. HISTORY OF PRESENT ILLNESS Nguyễn returns. No significant symptoms of concern. No adenopathy, night sweats or weight change. He does note a small ventral hernia that is painless. He was curious if it was related to lymphoma but it is not. His father in January 2018 and he gained some weight after that time. He is now changing his diet and increasing his exercise. He is leaving the clinic today to go to the gym. He has lost about 8 pounds since I last saw him in April. 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 He received IVIG through the end of 2017 and has not had increased infection since then, likely due to the less sick contacts. His IgG has been as low as in the 200s before but it is now above 400. While it is still low, this is much better and does not require IVIG at this time. We will continue to watch this and he may require it again in the future. ONCOLOGY HISTORY Presented with adenopathy in 2012. Right inguinal node increased in 2013. Biopsy in April 2013 showed a low-grade follicular lymphoma. Bone marrow biopsy was positive in May 2013. He completed six cycles of bendamustine and Rituxan from May 2013 through September 2013 and then received maintenance Rituxan from November 2013 through June 2015. He was noted to be immunosuppressed and has been on IVIG monthly since October 2017. PAST MEDICAL HISTORY Stage 4 low-grade follicular lymphoma, 2013. PAST SURGICAL HISTORY Unremarkable. FAMILY HISTORY Father with bladder and urethral cancer. Mother with likely thyroid cancer. SOCIAL HISTORY Patient is . They have grown children. 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 He does not smoke cigarettes. REVIEW OF SYSTEMS CONSTITUTIONAL: No fever, chills or significant change. HEENT: No headache or vision changes. CARDIOVASCULAR: No chest pain, dyspnea on exertion or edema. RESPIRATORY: No shortness of breath, wheezing or cough. GI: No nausea or vomiting. : No dysuria or hematuria. IMMUNOLOGIC: No recent infections. He did have a cold earlier this winter and fought it off without difficulty. PSYCHIATRIC: No anxiety or depression. He was grieving his father and continues to struggle with that as his father in 2018. ENDOCRINE: No heat or cold intolerance. SKIN: No concerning lesions. LYMPHATIC: No concerning lumps or bumps. The remainder of 14-point review of systems is otherwise negative. PHYSICAL EXAMINATION VITAL SIGNS: Blood pressure 143/83, pulse 68, respiratory rate 16, temperature 97 Fahrenheit, oxygen saturation 93% on room air, weight 197.2 kilograms. Pain 0/10. Fatigue 0/10. GENERAL: Stable condition, resting comfortably in the chair. HEENT: Normocephalic, atraumatic. CARDIOVASCULAR: Regular rate and rhythm. LUNGS: Clear. ABDOMEN: Soft, moderate obesity. A small ventral hernia in the epigastric region. No masses. LYMPHATIC: No appreciable cervical, supraclavicular or axillary adenopathy. EXTREMITIES: No clubbing, cyanosis or edema. SKIN: No concerning rashes or lesions. PSYCHIATRIC: Normal mood and affect. The remainder of physical exam is otherwise unremarkable. IMPRESSION AND PLAN Mr. Boyd is a very pleasant 53-year-old gentleman with the followin. Stage IV low-grade non-Hodgkin's lymphoma, follicular, in remission. No signs or symptoms of recurrent disease. 2. Acquired hypogammaglobulinemia due to lymphoma and treatment. His IgG was in the low 200's after chemotherapy and these levels have slowly increased with time and recovery. We decided to stop IVIG in March 2018 and observe. Thankfully, he has done well so far in 2019. As a result, we plan to see him back in six months but he should call in the interim if he has signs of infection. Recommend establishing with a primary care provider. Can wait and check his labs in six months. I answered all of their questions today. I do not feel that the hernia needs to be repaired at this time and advised him regarding red flag signs that would warrant re-evaluation. BILLING Return visit level 4. Total time 30 minutes, counseling time 20. MTDD
== END 2018-08-15 09:12 | disposition home or self-care (01) ==
LOC: ONC 08:28
PROVIDERS: ATTEND Internal Medicine
DX: C85.90 Non-Hodgkin lymphoma, unspecified, unspecified site (principal); D80.1 Nonfamilial hypogammaglobulinemia
CPT/HCPCS: 82040; 82247; 82310; 82374; 82435; 82565; 82784; 82947; 84075; 84132; 84155; 84295; 84450; 84460; 84520; 85025; 99212